=== PATIENT | female | born 1955 | race African-American/Black ===

== ENCOUNTER 2018-10-17 00:44 | Emergency (ER) | payer BC ==
[~2018-10-17] VITALS: Ht 165.1 cm; Wt 88.5 kg
[~2018-10-17 00:44] MED LIST: APAP500; MOBIC7.5 M1 PO; NEXIUM40 MG PO; NOHOMEMEDICATIONS; NORCO 5-325 TA1 EACH PO; NORCO 7.5-3251 EACH PO; ZOFRAN ODT4 MG PO
[2018-10-17 00:57] VITALS: BP 149/81
[2018-10-17] MEDS ORDERED: PREDNISONE 20 M20 MG PO (01:14)
[2018-10-17] MEDS ORDERED: NORFLEX100 MG PO (01:14)
[2018-10-17] MEDS ORDERED: TRAMADOL 50 MG50 MG PO (01:14)
== END 2018-10-17 01:57 | disposition home or self-care (01) ==
LOC: ER 00:44
DX: M75.51 Bursitis of right shoulder (principal); M43.6 Torticollis; G43.909 Migraine, unspecified, not intractable, without status migrainosus; Z88.6 Allergy status to analgesic agent

== ENCOUNTER → 2018-11-04 | Outpatient (CLI) | payer BC ==
[~2018-11-04] VITALS: Ht 165.1 cm; Wt 88.5 kg
[~2018-11-04] MED LIST changes: +MULTIVITAMINS1 EAC7 PO; +NORCO 10-325 T1 EACH PO; +NORFLEX100 MG PO; +PREDNISONE 20 M20 MG PO; +TRAMADOL 50 MG50 MG PO
--- NOTE | 2018-11-07 07:37 | P ---
[facility] [place] [address] PROCEDURE REPORT Name: MEAGAN SANTAMARIA Room #: REG [facility]#: [id number] Admission: 11/04/18 ������������������ Attend Phys: Dmitriy Sinclair MD Discharge: ������������������ Date of : 55 Report #: [id number] THIS REPORT FOR: //name// CC: Bernardo Morton TYPE OF REPORT: Outpatient colonoscopy report. BRIEF HISTORY: The patient is a 63-year-old woman for average risk screening colonoscopy. PREOPERATIVE DIAGNOSIS: Average risk screening colonoscopy. POSTOPERATIVE DIAGNOSES: 1. Polyp at 40 cm. 2. Mild sigmoid diverticulosis coli. 3. Small internal hemorrhoids. MEDICATIONS: Deep sedation with propofol per Anesthesia. SPECIMEN: Polyp from 40 cm. ESTIMATED BLOOD LOSS: 3 mL. PROCEDURE: Colonoscopy to cecum and terminal ileum with biopsy. FINDINGS: Prior to propofol sedation, procedure of colonoscopy was discussed with the patient as well as potential risks and its complications. She indicates she understands and desires to proceed. With the patient in left lateral decubitus position, digital examination was completed, which reviewed no abnormalities. Subsequently, the Olympus video colonoscope was introduced in the rectum, advanced under direct vision to the cecum. Done with minimal difficulty. The cecum was identified by the ileocecal valve and the appendiceal orifice. I was able to visualize the distal segment of the terminal ileum, which was inspected and noted to be unremarkable. At that point, the scope was shortened and careful circumferential views obtained. Upon slow withdrawal of the scope, the prep was excellent. The mucosa was within normal limits, normal vascular pattern and normal light reflex. As we withdrew the scope, no abnormalities were noted until left colon was reached and in the sigmoid colon at about 40 cm, a diminutive polyp was seen and removed with a biopsy forceps. The scope was further withdrawn and no additional neoplastic lesions were seen on this exam. In the sigmoid colon, there were a few small scattered diverticula, but there is no endoscopic evidence of diverticulitis. The scope was withdrawn in the rectum and upon retroflexion, small hemorrhoids were seen. Scope was withdrawn. The patient tolerated the [facility] [address] [place] [address] PROCEDURE REPORT Name: SANTAMARIAMEAGAN Camarena Room #: REG [facility]#: [id number] Admission: 11/04/18 ������������������ Attend Phys: Dmitriy Sinclair MD Discharge: ������������������ Date of : 55 Report #: [id number] procedure well. CONDITION OF THE PATIENT UPON DISCHARGE: Following the procedure, the patient drowsy, aroused, conversant and will be discharged home when fully ambulatory. INSTRUCTIONS TO THE PATIENT AND FAMILY AT THE TIME OF DISCHARGE: One diminutive polyp identified and removed as described above. We will follow up on the pathology. If this is an adenomatous, return in 5 years and if it is hyperplastic, then 10 years would be indicated. Last colonoscopy was more than 5 years ago. Withdrawal time from the cecum was 8 minutes and 28 seconds. ��������������������������������������������� <ELECTRONICALLY SIGNED> ���������������������������������������� By: Dmitriy Sinclair MD ��������������������������������������������� 11/07/18 0737 1000 [id number] Dmitriy Sinclair MD /nt
--- NOTE | 2018-11-07 12:07 | PATH ---
[facility] [address] [place] [address] PATHOLOGY RPT PROCEDURE Name: MEAGAN BYRD Room #: REG [facility].#: [id number] ������������������ Admission: 11/04/18 ������������������ Date of : 55 Discharge: Report #: [id number] Path Case #: [id number] [facility] Accession Number: [id number] . 01 Material submitted: . POLYP AT 40CM . 01 Clinical history: . Screening Colon polyp, diverticulosis . 02 Diagnosis: Polyp, at 40 cm, endoscopic biopsy: - Tubular adenoma. - Negative for high-grade dysplasia. (IUV:pit 11/06/2018) QTP/11/06/2018 . 02 Electronically signed: . Dona Traylor MD, Pathologist NPI- [id number] . 01 Gross description: . Received in formalin labeled "ByrdMeagan, polyp at 40 cm," is a segment of pale julien soft tissue measuring 0.4 x 0.3 x 0.2 cm in greatest dimensions. The specimen is submitted entirely in cassette A1. ([facility]; 11/05/2018) XDC/XDC . 02 Pathologist provided ICD-10: D12.6 . 02 CPT . 876968 Specimen Comment: A courtesy copy of this report has been sent to Specimen Comment: [phone], . Specimen Comment: Report sent to / DR MCCRAY Performed at: [address], [place] [id number] MD Monster Martinez MD Phone: [phone] Performed at: [address] [id number] MD Dona Traylor MD Phone: [phone]
== END | disposition home or self-care (01) ==
LOC: GI 07:01
DX: Z12.11 Encounter for screening for malignant neoplasm of colon (principal); D12.5 Benign neoplasm of sigmoid colon; K57.30 Diverticulosis of large intestine without perforation or abscess without bleeding; K64.8 Other hemorrhoids; K21.9 Gastro-esophageal reflux disease without esophagitis; Z98.51 Tubal ligation status; Z98.890 Other specified postprocedural states; Z86.69 Personal history of other diseases of the nervous system and sense organs; Z79.899 Other long term (current) drug therapy; Z88.8 Allergy status to other drugs, medicaments and biological substances
CPT/HCPCS: 62110; 62900

== ENCOUNTER → 2018-11-27 | Outpatient (CLI) | payer BC ==
--- NOTE | 2018-11-27 14:28 | 2DMMODE ---
[facility] [place] [address] 2 D/M-MODE ECHOCARDIOGRAM Name: MEAGAN SANTAMARIA Room #: REG [facility]#: [id number] ������������� Admission: 11/27/18 ������������� Attend Phys: Douglas Tucker Discharge: ��� ������������� ��� Date of : 55 Date of Service: 11/27/18 1428 �� Report #: [id number] �������� ��������������������������������������������[id number] THIS REPORT FOR: //name// APPROVED REPORT Study performed: 11/27/2018 13:32:39 EXAM: Comprehensive 2D, Doppler, and color-flow Echocardiogram Patient Location: Out-Patient Room #: Echo lab 2 Status: routine BSA: 1.94 HR: 69 bpm BP: 132/84 mmHg Rhythm: NSR Other Information Study Quality: Good Indications Palpitations 2D Dimensions RVDd: 24.89 mm IVSd: 9.78 (7-11mm) LVOT Diam: 21.10 (18-24mm) LVDd: 45.41 mm PWd: 10.41 (7-11mm) Ascending Ao: 25.18 (22-36mm) LVDs: 29.54 (25-40mm) Aortic Root: 26.84 mm IVC: 10.00 mm Volumes Left Atrial Volume (Systole) Single Plane 4CH: 26.06 mL Single Plane 2CH: 30.23 mL LA ESV Index: 15.00 mL/m2 Aortic Valve AoV Peak Rosalio.: 1.16 m/s AO Peak Gr.: 5.41 mmHg LVOT Max P.63 mmHg LVOT Max V: 0.81 m/s RIMA Vmax: 2.44 cm2 Mitral Valve E/A Ratio: 1.1 MV Decel. Time: 184.77 ms MV E Max Rosalio.: 0.83 m/s [facility] [address] [place] [address] 2 D/M-MODE ECHOCARDIOGRAM Name: SANTAMARIAMEAGAN Room #: [facility]#: [id number] ������������� Admission: 11/27/18 ������������� Attend Phys: Douglas Tucker Discharge: ��� ������������� ��� Date of : 55 Date of Service: 11/27/18 1428 �� Report #: [id number] �������� ��������������������������������������������[id number] MV A Rosalio.: 0.75 m/s MV PHT: 53.58 ms IVRT: 101.50 ms Pulmonary Valve PV Peak Rosalio.: 0.79 m/s PV Peak Gr.: 2.47 mmHg Pulmonary Vein P Vein S: 0.41 m/s P Vein A: 0.28 m/s P Vein D: 0.30 m/s P Vein A Dur.: 120.0 msec P Vein S/D Ratio: 1.37 Tricuspid Valve TR Peak Rosalio.: 2.01 m/s TR Peak Gr.: 16.17 mmHg PA Pressure: 21.00 mmHg Left Ventricle The left ventricle is normal size. There is normal LV segmental wall motion. There is normal left ventricular wall thickness. Left ventricular systolic function is normal. The left ventricular ejection fraction is within the normal range. LVEF is 55-60%. The left ventricular diastolic function is normal. Right Ventricle The right ventricle is normal size. The right ventricular systolic function is normal. Atria The left atrium size is normal. The right atrium size is normal. Aortic Valve The aortic valve is normal in structure. No aortic regurgitation is present. There is no aortic valvular stenosis. Mitral Valve The mitral valve is normal in structure. Trace to mild mitral regurgitation. No evidence of mitral valve stenosis. Tricuspid Valve The tricuspid valve is normal in structure. There is trace tricuspid regurgitation. Estimated PAP 21 mmHg. There is no pulmonary hypertension. Pulmonic Valve [address] [address] 2 D/M-MODE ECHOCARDIOGRAM Name: MEAGAN SANTAMARIA Room #: REG [facility]#: [id number] ������������� Admission: 11/27/18 ������������� Attend Phys: Douglas Tucker Discharge: ��� ������������� ��� Date of : 55 Date of Service: 11/27/18 1428 �� Report #: [id number] �������� ��������������������������������������������[id number] The pulmonary valve is normal in structure. There is no pulmonic valvular regurgitation. Great Vessels The aortic root is normal in size. IVC is normal in size and collapses >50% with inspiration. Pericardium There is no pericardial effusion. <Conclusion> The left ventricle is normal size. LVEF is 55-60%. The aortic valve is normal in structure. The mitral valve is normal in structure. Trace to mild mitral regurgitation. The tricuspid valve is normal in structure. There is trace tricuspid regurgitation. Estimated PAP 21 mmHg. There is no pulmonary hypertension. The pulmonary valve is normal in structure. There is no pericardial effusion. ��������������������������������������������� <ELECTRONICALLY SIGNED> ���������������������������������������� By: Douglas Barron MD ��������������������������������������������� 11/27/18 1428 1428 1428 Douglas Barron MD /INF
== END ==
LOC: NUC 07:16
DX: R07.89 Other chest pain (principal); I10 Essential (primary) hypertension; Z88.8 Allergy status to other drugs, medicaments and biological substances; Z87.898 Personal history of other specified conditions

== ENCOUNTER → 2019-05-22 | Outpatient (CLI) | payer BC | LOC: BC 13:59 | DX: Z12.31 Encounter for screening mammogram for malignant neoplasm of breast (principal) ==

== ENCOUNTER → 2019-10-22 | Outpatient (CLI) | payer BC | LOC: ULTRA 13:25 | DX: N85.8 Other specified noninflammatory disorders of uterus (principal); N76.0 Acute vaginitis ==

== ENCOUNTER 2021-08-30 03:51 | Emergency (ER) | payer BC ==
[~2021-08-30] VITALS: Ht 165.1 cm; Wt 104.3 kg
[2021-08-30] MEDS ORDERED: HYDROXYZINE HCL25 M2 PO (05:03)
[2021-08-30 05:12] VITALS: BP 142/77
== END 2021-08-30 05:19 | disposition home or self-care (01) ==
LOC: ER 03:51
DX: L29.9 Pruritus, unspecified (principal); G43.909 Migraine, unspecified, not intractable, without status migrainosus; K21.9 Gastro-esophageal reflux disease without esophagitis; Z79.899 Other long term (current) drug therapy; Z90.89 Acquired absence of other organs; Z88.6 Allergy status to analgesic agent